=== PATIENT | female | born 1990 | race Two or more races ===

== ENCOUNTER → 2016-05-23 | Outpatient (REF) | payer OTHER ==
[2016-05-24 11:32] LABS: BASO % 0.2 % (0.0-1.0); EOS # 0.1 K/mm3 (0.0-0.50); EOS % 1.7 % (0.0-3.0); LARGE UNSTAINED CELL # 0.2 K/mm3 (0.0-0.4); LARGE UNSTAINED CELL % 2.6 % (0.0-4.0); LYMPH # 1.2 K/mm3 (1.5-6.5); LYMPH % 16.6 % (24.0-44.0); MEAN CORPUSCULAR HGB CONC 31.2 g/dl (32.0-36.5); MEAN CORPUSCULAR VOLUME 89.6 fl (80.0-96.0); MONO # 0.3 K/mm3 (0.0-0.8); MONO % 4.6 % (0.0-5.0); NEUTROPHILS # 5.5 K/mm3 (1.8-7.7); NEUTROPHILS % 74.2 % (36.0-66.0); PLATELET COUNT, AUTOMATED 305 k/mm3 (150-450); RED CELL DISTRIBUTION WIDTH 12.9 % (11.5-14.5); WHITE BLOOD COUNT 7.3 K/mm3 (4.0-10.0)
[2016-05-24 12:02] LABS: ALBUMIN 3.6 GM/DL (3.2-5.2); ALBUMIN/GLOBULIN RATIO 1.09 (1.00-1.93); ALKALINE PHOSPHATASE 113 U/L (45-117); ALT/SGPT 26 U/L (12-78); ANION GAP 10 MEQ/L (8-16); AST/SGOT 20 U/L (15-37); BILIRUBIN,TOTAL 0.3 MG/DL (0.2-1.0); BLOOD UREA NITROGEN 11 MG/DL (7-18); CALCIUM LEVEL 8.8 MG/DL (8.5-10.1); CARBON DIOXIDE LEVEL 24 MEQ/L (21-32); CHLORIDE LEVEL 107 MEQ/L (98-107); CREATININE FOR GFR 0.79 MG/DL (0.55-1.02); FREE T4 0.91 NG/DL (0.76-1.46); GLOMERULAR FILTRATION RATE > 60.0 (>60); GLUCOSE, FASTING 80 MG/DL (70-105); POTASSIUM SERUM 4.6 MEQ/L (3.5-5.1); SODIUM LEVEL 141 MEQ/L (136-145); TOTAL PROTEIN 6.9 GM/DL (6.4-8.2)
== END ==
LOC: M SFHCLERA 15:16
PROVIDERS: ATTEND Family Medicine
DX: F41.9 Anxiety disorder, unspecified (principal); Z00.00 Encounter for general adult medical examination without abnormal findings

== ENCOUNTER → 2016-12-19 | Outpatient (CLI) | payer OTHER ==
[~2016-12-19] MED LIST: ALPR0.25 PO; BACT800T5 PO; FLUO1TAB3; METH1TAB40; PREG50CA; PYRI1TAB5 PO; SUMA50TA2; TIZANIDINE
--- NOTE | 2016-12-19 11:07 | REP ---
Clinical: Pain. Technique: Neutral and frog lateral views of the bilateral hips. Findings: The bilateral hips are symmetric and normal in appearance. No acute or healed fracture identified. No evidence for dislocation. No significant degenerative or congenital abnormalities appreciated. Impression: Normal symmetric bilateral hips. Signed by Bertrand Dewitt MD 12/19/2016 10:59 A
== END ==
LOC: M RAD 10:06
PROVIDERS: ATTEND Pain Medicine Interventional Pain Medicine
DX: M25.559 Pain in unspecified hip (principal)

== ENCOUNTER → 2017-01-05 | Outpatient (CLI) | payer OTHER ==
--- NOTE | 2017-01-06 13:20 | REP ---
MRI BILATERAL HIPS: TECHNIQUE: Coronal T1, STIR through the pelvis, T2 fat sat, bilateral hips in all three planes, axial oblique proton density fat sat bilateral hips. There is no occult fracture or avascular necrosis. A tiny hyperintensity on T2-weighted images along the anterior cortex of the left femoral head and neck junction appears to represent a tiny synovial herniation pit. There is no joint effusion bilaterally. There does appear to be a tear of the anterior labrum on the right superiorly. No other labral tear is seen bilaterally. There is no paralabral cyst. There is very mild ill-defined high signal on T2-weighted images adjacent to both greater trochanters. The findings are compatible with very mild bilateral trochanteric tendinobursitis. No other soft tissue signal abnormality is seen. Visualized intrapelvic structures appear unremarkable. IMPRESSION: There appears to be a tear of the right anterior labrum superior aspect. No other evidence of labral tear bilaterally. Tiny synovial herniation pit in the anterior left femoral head/neck junction. Very mild bilateral greater trochanteric tendinobursitis. Signed by Micheal Cruz MD 01/06/2017 07:03 P
== END ==
LOC: M RAD 09:21
PROVIDERS: ATTEND Nurse Practitioner Family
DX: M19.90 Unspecified osteoarthritis, unspecified site (principal)

== ENCOUNTER 2017-01-10 19:04 | Emergency (ER) | payer OTHER ==
[~2017-01-10] VITALS: Ht 162.6 cm; Wt 74.1 kg
[2017-01-10] MEDS ORDERED: FLUO1TAB3 (19:21)
[2017-01-10] MEDS ORDERED: PREG50CA (19:21)
[2017-01-10] MEDS ORDERED: ALPR0.25 PO (19:21)
[2017-01-10] MEDS ORDERED: METH1TAB40 (19:21)
[2017-01-10] MEDS ORDERED: TIZANIDINE (19:21)
[2017-01-10] MEDS ORDERED: SUMA50TA2 (19:21)
[2017-01-10] MEDS ORDERED: PHENAZOPYRIDINE 100 MG TAB PO ONE (23:30)
[2017-01-10 23:58] LABS: CONTROL LINE UCG INT CTR LINE PRESENT
[2017-01-11] MEDS ORDERED: PYRI1TAB5 PO (00:39)
[2017-01-11] MEDS ORDERED: BACT800T5 PO (00:39)
--- NOTE | 2017-01-11 00:40 | REPUSA ---
CLINICAL HISTORY: Pelvic pain. TECHNIQUE: Realtime sonographic images were obtained in multiple projections via TV approach. COMMENTS: The uterus is anteverted measuring 6.7 x 3.1 x 4.9 cm. The endometrial echo pattern is within normal limits measuring 25 mm. There is no evidence of free fluid within the pelvic cul-de-sac. The right ovary measures 2.3x1.3x1 cm and the left ovary measures 2.1x1.7x1.3 cm. Both ovaries are fr ee of solid or cystic mass. There is no evidence for abnormal vascularity. IMPRESSION: Thickened endometrium. Intrauterine device is in good position. Thank you for your kind referral of this patient. DIA
[2017-01-11] MEDS ORDERED: BACTRIM 160MG/800MG DS TAB PO ONE (00:45)
[2017-01-11 00:48] VITALS: BP 125/84
== END 2017-01-11 00:49 | disposition home or self-care (01) ==
LOC: M ED 19:04
DX: N39.0 Urinary tract infection, site not specified (principal)
CPT/HCPCS: 76830; 76856; 81001; 84703; 87070; 87086; 87491; 87591; 93976; 99282; G0463

== ENCOUNTER → 2017-01-10 | Outpatient (REF) | payer OTHER | LOC: M SFHCLERA 18:04 | PROVIDERS: ATTEND Nurse Practitioner Family | DX: R10.84 Generalized abdominal pain (principal) ==

== ENCOUNTER → 2017-09-12 | Outpatient (CLI) | payer OTHER | LOC: M SMT 10:36 | DX: M17.11 Unilateral primary osteoarthritis, right knee (principal) | CPT/HCPCS: 73564; G0463 ==

== ENCOUNTER → 2017-10-07 | Outpatient (CLI) | payer OTHER | LOC: M RAD 13:18 | DX: M17.11 Unilateral primary osteoarthritis, right knee (principal) | CPT/HCPCS: 73721 ==

== ENCOUNTER → 2017-12-02 | Outpatient (REF) | payer OTHER ==
[2017-12-02 16:29] LABS: CONTROL LINE HCG INT CTR LINE PRESENT; HCG, SERUM QUALITATIVE POSITIVE (NEGATIVE)
== END ==
LOC: M SFHCLERA 11:49
DX: N92.6 Irregular menstruation, unspecified (principal)
CPT/HCPCS: 84703

== ENCOUNTER → 2017-12-31 | Outpatient (CLI) | payer OTHER ==
[2017-12-31 13:43] LABS: BASO % 0.1 % (0.0-1.0); EOS # 0.1 10^3/uL (0.0-0.50); EOS % 0.9 % (0.0-3.0); HEMATOCRIT 39.9 % (36.0-47.0); HEMOGLOBIN 13.1 g/dl (12.0-15.5); IMMATURE GRANULOCYTE % 0.8 % (0-3.0); LYMPH # 1.8 10^3/uL (1.5-6.5); MEAN CORPUSCULAR HEMOGLOBIN 29.6 pg (27.0-33.0); MEAN CORPUSCULAR HGB CONC 32.8 g/dl (32.0-36.5); MEAN CORPUSCULAR VOLUME 90.1 fl (80.0-96.0); MONO # 0.6 10^3/uL (0.0-0.8); MONO % 6.9 % (0.0-5.0); NEUTROPHILS # 5.5 10^3/uL (1.8-7.7); NEUTROPHILS % 68.3 % (36.0-66.0); PLATELET COUNT, AUTOMATED 319 10^3/uL (150-450); RED BLOOD COUNT 4.43 10^6/uL (4.00-5.40); RED CELL DISTRIBUTION WIDTH 13.7 % (11.5-14.5)
[2017-12-31 15:48] LABS: CHLAMYDIA DNA AMPLIFICATION NEGATIVE (NEGATIVE); GC DNA AMPLIFICATION NEGATIVE (NEGATIVE)
[2018-01-01 10:44] LABS: HEPATITIS C VIRUS ABY INDEX 0.1 INDEX (<0.8)
[2018-01-01 10:44] LABS: HBsAg Prenatal NEGATIVE (NEGATIVE); HIV 1&2 SCREEN CENTAUR NEGATIVE (NEGATIVE); RUBELLA IgG QUALITATIVE IMMUNE (IMMUNE)
== END ==
LOC: M SMT 10:55
DX: Z34.81 Encounter for supervision of other normal pregnancy, first trimester (principal); Z3A.08 8 weeks gestation of pregnancy
CPT/HCPCS: 86762

== ENCOUNTER → 2018-02-09 | Outpatient (REF) | payer OTHER | LOC: M SFHCLERA 11:22 | DX: R30.0 Dysuria (principal) | CPT/HCPCS: 87186 ==

== ENCOUNTER → 2018-03-26 | Outpatient (CLI) | payer OTHER | LOC: M SMT 09:28 | DX: Z36.89 Encounter for other specified antenatal screening (principal); Z3A.20 20 weeks gestation of pregnancy | CPT/HCPCS: 76811 ==

== ENCOUNTER → 2018-06-02 | Outpatient (CLI) | payer OTHER ==
[2018-06-02 16:29] LABS: BASO % 0.1 % (0.0-1.0); EOS # 0.1 10^3/uL (0.0-0.50); EOS % 0.8 % (0.0-3.0); HEMOGLOBIN 11.3 g/dl (12.0-15.5); LYMPH # 1.6 10^3/uL (1.5-4.5); LYMPH % 18.1 % (24.0-44.0); MEAN CORPUSCULAR HEMOGLOBIN 28.7 pg (27.0-33.0); MEAN CORPUSCULAR HGB CONC 32.3 g/dl (32.0-36.5); MEAN CORPUSCULAR VOLUME 88.8 fl (80.0-96.0); MONO # 0.4 10^3/uL (0.0-0.8); MONO % 4.5 % (0.0-5.0); NEUTROPHILS # 6.9 10^3/uL (1.8-7.7); NEUTROPHILS % 75.9 % (36.0-66.0); PLATELET COUNT, AUTOMATED 345 10^3/uL (150-450); RED BLOOD COUNT 3.94 10^6/uL (4.00-5.40); WHITE BLOOD COUNT 9.1 10^3/uL (4.0-10.0)
== END ==
LOC: M LRY 10:57
PROVIDERS: ATTEND Obstetrics & Gynecology Obstetrics
DX: Z36.89 Encounter for other specified antenatal screening (principal)

== ENCOUNTER → 2018-07-24 | Outpatient (CLI) | payer OTHER ==
--- NOTE | 2018-07-25 04:53 | REP ---
Clinical: Growth evaluation. Comparison: 03/26/2018 . Findings: Examination demonstrates a single live intrauterine in cephalic presentation. motion is identified by technologist. Placenta is noted right fundal and grade grade II without evidence for placenta previa or abruption. Amniotic fluid volume is normal. Cervix measures 6.0 cm in length and appears closed. No evidence for nuchal cord. Gestational age by first US 37 weeks 6 days with KAYLEIGH 08/08/2018 . Gestational age by current measurements 37 weeks 1 day with KAYLEIGH 08/13/2018 . FHR equals 114 beats per minute. BPD 9.1 cm 36 weeks 5 day HC 33.7 cm 38 weeks 5 days AC 32.8 cm 36 weeks 5 days FL 7.3 cm 37 weeks 1 day HL 6.4 cm 37 weeks 0 days HC/AC ratio 1.03 Estimated weight 3104 grams (44th percentile). Amniotic fluid index: 12.4 cm. Umbilical cord SD ratio: 2.39 Impression: Single live advanced gestation in cephalic presentation demonstrating appropriate interval growth. No gross abnormalities are identified. Electronically Signed by Bertrand Dewitt MD 07/25/2018 04:44 A
== END ==
LOC: M LRY 13:48
PROVIDERS: ATTEND Obstetrics & Gynecology Obstetrics
DX: Z36.89 Encounter for other specified antenatal screening (principal); Z3A.37 37 weeks gestation of pregnancy